=== PATIENT | male | born 1980 | race Caucasian/White ===

== ENCOUNTER 2020-10-18 11:48 | Emergency (ER) | payer MEDICAID ==
[~2020-10-18] VITALS: Ht 167.6 cm; Wt 67.1 kg
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
--- NOTE | 2020-10-18 12:00 | NUR ---
FISHER LINE AT BEDSIDE WOUND CLEANING
--- NOTE | 2020-10-18 12:03 | NUR ---
AT BEDSIDE FOR EVAL.
--- NOTE | 2020-10-18 12:17 | NUR ---
PT IS WHEELED TO CT SCAN VIA [facility].
--- NOTE | 2020-10-18 13:35 | NUR ---
FRONT COUNTER CLERK AT BEDSIDE FOR XRAY.
--- NOTE | 2020-10-18 16:07 | NUR ---
MACHINE LOADER AT BEDSIDE FOR REPEAT XRAY.
[2020-10-18] MEDS ORDERED: IBUP-1957 PO (16:50)
[2020-10-18] MEDS ORDERED: HYDR-3972 PO (16:50)
[2020-10-18 17:10] VITALS: BP 122/71
--- NOTE | 2020-10-18 17:10 | NUR ---
Patient discharged to home in stable condition. Written and verbal after care instructions given. Patient verbalizes understanding of instruction.
== END 2020-10-18 17:11 | disposition home or self-care (01) ==
LOC: ER 11:53
DX: S22.071A Stable burst fracture of T9-T10 vertebra, initial encounter for closed fracture (principal); S22.081A Stable burst fracture of T11-T12 vertebra, initial encounter for closed fracture; S22.31XA Fracture of one rib, right side, initial encounter for closed fracture; S01.01XA Laceration without foreign body of scalp, initial encounter; Z88.0 Allergy status to penicillin; Y00.XXXA Assault by blunt object, initial encounter; Y93.89 Activity, other specified; Y92.89 Other specified places as the place of occurrence of the external cause; Y99.8 Other external cause status
CPT/HCPCS: 12001; 70450; 71045 ×2; 72125; 72128; 73070; 73130; 99285; A6403